=== PATIENT | male | born 1985 | race Caucasian/White ===

== ENCOUNTER 2019-06-22 19:35 | Emergency (ER) | payer OTHER ==
--- NOTE | 2019-06-22 20:26 | CT ---
Head CT without contrast 06/22/2019: COMPARISON: 06/21/2019 HISTORY: Nausea and vomiting, headache TECHNIQUE: Axial CT imaging at 5 mm intervals from vertex through skull base without contrast FINDINGS: The visualized paranasal sinuses and mastoid air cells are well aerated. No displaced lorin rial fracture. No intracranial hemorrhage, midline shift, mass effect, or ventricular enlargement. IMPRESSION: No acute findings.
[2019-06-22 20:33] LABS: #Basophils 0.1 thou/uL (0.0-0.2); #Eosinphils 0.2 thou/uL (0.0-0.7); #Lymphocytes 2.2 thou/uL (1.20-3.40); #Monocytes 0.5 thou/uL (0.11-0.59); #Neutrophils 4.1 thou/uL (1.40-6.50); %Basophils 0.9 % (0.0-1.0); %Eosinophils 2.4 % (0.0-10.0); %Lymphocytes 31.7 % (21.0-51.0); %Monocytes 7.4 % (0.0-10.0); %Neutrophils 57.6 % (42.0-75.0); Hemoglobin 14.6 g/dL (14.0-18.0); Mean Corpuscular HGB CONC 34.2 g/dL (32.0-36.0); Mean Corpuscular Hemoglobin 32.4 pg (27.0-31.0); Mean Corpuscular Volume 94.7 fL (78.0-98.0); Mean Platelet Volume 8.8 fL (7.4-10.4); Platelet Count 169 thou/uL (130-400); RBC Distribution Width 12.2 % (11.5-14.5); Red Blood Cell (RBC) Count 4.51 mill/uL (4.70-6.10); White Blood Cell (WBC) Count 7.1 thou/uL (4.8-10.8)
[2019-06-22 20:53] LABS: Anion Gap 11 mmol/L (10-20); BUN (Urea Nitrogen) 15 mg/dL (8.9-20.6); Calc. Creatinine Clearance 0 mL/min (70-130); Carbon Dioxide 27 mmol/L (22-29); Chloride 107 mmol/L (98-107); Estimated GFR-MDRD 85; Glucose 95 mg/dL (70-105); Potassium 3.7 mmol/L (3.5-5.1); Sodium 141 mmol/L (136-145)
[2019-06-22] MEDS ORDERED: Acetaminophen 500 MG TAB ONE (21:11)
[2019-06-22] MEDS ORDERED: Ondansetron PF 4 MG/2 ML Vial ONE (21:11)
[2019-06-22] MEDS ORDERED: Morphine 4 MG/ML VIAL ONE (21:12)
[2019-06-22] MEDS ORDERED: Ketorolac Tromethamine 30 MG/ML VIAL ONE (22:00)
== END 2019-06-22 23:15 | disposition home or self-care (01) ==
LOC: ERS 19:35
DX: S06.0X1A Concussion with loss of consciousness of 30 minutes or less, initial encounter (principal); W22.8XXA Striking against or struck by other objects, initial encounter
CPT/HCPCS: 36415; 70450; 80048; 85025; 96361; 96374; 96375; J1885; J2270; J2405

== ENCOUNTER 2019-10-19 11:18 | Outpatient (CLI) | payer OTHER ==
--- NOTE | 2019-10-19 12:00 | RAD ---
EXAM: XR Cervical Spine 4 View Min DATE: 10/19/2019 12:00 AM INDICATION: Neck pain COMPARISON: CT cervical spine dated June 21, 2019 FINDING: No abnormal translational motion is evident. No acute fracture or subluxation demonstrated. Visualized prevertebral soft tissues are normal appearing. Spinal alignment is normal-appearing. Lung apices are clear. IMPRESSION:No acute osseous abnormality.
== END 2019-10-19 11:19 | disposition home or self-care (01) ==
LOC: BICRAD 11:18
PROVIDERS: ATTEND Neurological Surgery
DX: M54.2 Cervicalgia (principal)
CPT/HCPCS: 72050

== ENCOUNTER 2020-08-25 07:59 | Outpatient (CLI) | payer OTHER ==
--- NOTE | 2020-08-25 08:24 | RAD ---
FOUR VIEWS OF THE CERVICAL SPINE: (LATERAL PROJECTIONS WITH NEUTRAL, FLEXION, AND EXTENSION POSITIONING) INDICATION: History of neck injury 1 year ago with right arm weakness. COMPARISON: Prior cervical spinal radiographs dated 10/19/2019. FINDINGS: Spinal alignment appears within normal limits. No abnormal translational motion is evident. Prevert ebral soft tissues are normal-appearing. The cervical spine on the lateral projection is evaluated u p to C7. C7-T1 is not as well seen. IMPRESSION: No abnormal translational motion demonstrated. POS: OFF
--- NOTE | 2020-08-25 08:55 | MRI ---
MR CERVICAL SPINE WITHOUT CONTRAST INDICATION: 35-year-old male with radiculopathy TECHNIQUE: Multiplanar multisequence MR images were obtained of the cervical spine without contrast. COMPARISON: MR of the cervical spine without contrast dated June 21, 2019. FINDINGS: Posterior fossa: Within normal limits. Bone marrow signal intensity: Normal Spinal alignment: Normal. Craniocervical junction: Normal appearing. Prevertebral and perivertebral soft tissues: Visualized soft tissues appear within normal limits. Vertebral levels: C2-C3: No appreciable central canal or neuroforaminal narrowing. C3-4: There is a very mild left paracentral protrusion that encroaches upon the neural foramina witho ut significant narrowing. This is stable to the prior exam. C4-5: There is a left paracentral protrusion that causes mild effacement of the left ventrolateral s ubarachnoid space and produces some mild encroachment on the left neural foramina. This is slightly more pronounced than on the prior examination in 2019. The right neural foramen is patent. There is n o cord compression. C5-C6: No appreciable central canal or neuroforaminal narrowing. C6-C7:, No appreciable central canal or neuroforaminal narrowing. C7-T1: No appreciable central canal or neuroforaminal narrowing. IMPRESSION: 1. Worsening left paracentral disc protrusion at C4-5 inducing some effacement of the left ventrolate ral subarachnoid space but no definite cord contact. There is worsening mild left neural foraminal narrowing at C4-5. 2. Very mild left paracentral disc protrusion at C3-4 with out definite left-sided neural foraminal n arrowing or central canal narrowing.
== END 2020-08-25 08:00 | disposition home or self-care (01) ==
LOC: TBSIIMAG 07:59
PROVIDERS: ATTEND Neurological Surgery
DX: M50.11 Cervical disc disorder with radiculopathy, high cervical region (principal); M48.02 Spinal stenosis, cervical region
CPT/HCPCS: 72040; 72141